=== PATIENT | male | born 1990 | race Caucasian/White ===

== ENCOUNTER 2022-11-16 20:11 | Emergency (ER) | payer BC, OTHER, SELFPAY ==
[2022-11-16 20:12] VITALS: BP 132/91; PULSE 75; RESP 18; TEMP 36.6; O2SAT 98; BMI 26.5
--- NOTE | 2022-11-16 20:23 | ED.VIS.GI ---
HPI HPI - GI History of Present Illness Chief Complaint: Foreign Body Narrative Narrative: 32-year-old male presenting with irritation to the lower part of the esophagus. He states he was eating some mac & cheese and that was takeout and he believes he swallowed a piece of the plastic from the lid of the container. Patient states that he felt a crunch when he was chewing but he thought it was the crust of the macaroni and cheese. He swallowed this and felt something sharp in his throat. Has not had any trouble swallowing or breathing. PFSH PFSH Home Medications No Known/Unobtainable [No Known Home Medications] 03/25/17 [History Last Taken Unknown] Allergy/AdvReac Type Severity Reaction Status Date / Time No Known Allergies Allergy Verified 11/16/22 20:11 Social History Smoking Status: Current every day smoker tobacco type: cigarettes ROS ROS ED Constitutional Constitutional ED: Denies chills or fever(s) ENT ENT ED: Denies rhinorrhea Cardiovascular Cardiovascular: Denies chest pain or palpitations Respiratory/Chest Respiratory/Chest: Denies cough or dyspnea Gastrointestinal Gastrointestinal: Reports other Details: Foreign body sensation of soft ; Denies abdominal pain or constipation Genitourinary Genitourinary ED: Denies dysuria or hematuria Musculoskeletal Musculoskeletal: Denies arthralgias or back pain Integumentary Denies abscess or Abrasions Neurologic Neurologic: Denies headache(s) EXAM Physical Exam Const Vital Signs: 11/16/22 20:12 11/16/22 20:26 Temperature 97.9 F Temperature Source Temporal Pulse Rate 75 Respiratory Rate 18 Respiratory Effort Normal Respiratory Pattern Normal Blood Pressure 132/91 H Blood Pressure Mean 104 Pulse Ox 98 Oxygen Delivery Method Room Air Positive well nourished General Appearance ED: NAD HEENT Reports TM's clear HEENT Narrative: Patient tolerated on secretions. Tympanic Membrane ED: Yes TM's clear Eyes PERRL and EOMs intact bilaterally Neck no lymphadenopathy and supple Neck Narrative: No stridor. Resp normal respiratory effort Cardio regular rate and regular rhythm GI non-tender Neuro CN's II-XII intact bilaterally Sensorium / Orientation: alert Psych mental status grossly normal Skin no wounds MDM MDM MDM Narrative Medical decision making narrative: 32-year-old male presenting with concern that he swallowed a piece of plastic from a lid trauma to go container. He does have some slight irritation but is not having trouble swallowing or breathing. He is tolerating his own secretions. He was able to drink after this and swallowing was nonissue. Discussed with Dr. Reich who felt that it was likely irritation all and he felt the plastic would pass. He did not feel like the patient needed a emergent scope. I did obtain soft tissue neck and KUB which does not identify any foreign bodies. Patient was counseled on return precautions. He was given Dr. Reich for follow-up should he need them. Discharged in stable condition. Impression: 1. Swallowed foreign body 2. Globus hystericus Radiography Diagnostic Testing: Clinical Impression(s) from Imaging Studies Soft Tissue Neck X-Ray 11/16/22 20:30 IMPRESSION: Unremarkable study. Electronically Signed: Philip Hinse MD at 20:59 EDT , KUB X-Ray 11/16/22 21:00 IMPRESSION: Non-obstructive bowel gas pattern. Electronically Signed: Philip Hines MD at 21:42 EDT , Discharge Plan Triage Chief Complaint: Foreign Body ED Provider: Bjorn Rojas Dx/Rx/DC Orders Instructions: ED Swallowed Foreign Body (Adult) Prescriptions: No Action No Known Home Medications Primary Care Provider: Rush Lezama Referrals: Rush Lezama MD [Primary Care Provider] - Rodney Reich DO [Med Staff - Active Staff] - 3-5 Days Disposition Disposition: Home, Self Care
--- NOTE | 2022-11-16 20:30 | RAD_ITS ---
INDICATION: Foreign body EXAMINATION/TECHNIQUE: X-RAY - XR Neck Soft Tissue COMPARISON: None. FINDINGS: SOFT TISSUES: Unremarkable. No radiopaque foreign body. EPIGLOTTIS: No pathologic thickening or enlargement. PROXIMAL AIRWAY: Grossly patent. RAD/Neck for Soft Tissue IMPRESSION: Unremarkable study. Electronically Signed: Philip Hines MD at 20:59 EDT ,
--- NOTE | 2022-11-16 21:00 | RAD_ITS ---
INDICATION: foreign body EXAMINATION/TECHNIQUE: X-RAY - XR Abdomen 1 View COMPARISON: None FINDINGS: BOWEL GAS PATTERN: Non-obstructive. No bowel or stomach distention. FREE AIR: Not assessed on a single supine view. ORGANOMEGALY: Not seen. CALCIFICATIONS: No abnormal calcifications observed. BONES AND SOFT TISSUES: No acute pathology. No radiodense foreign body. RAD/Abdomen Single View (Portable) IMPRESSION: Non-obstructive bowel gas pattern. Electronically Signed: Philip Hines MD at 21:42 EDT ,
== END 2022-11-16 21:51 | disposition home or self-care (01) ==
PROVIDERS: Emergency Provider Student in an Organized Health Care Education/Training Program; PCP Family Medicine; Visit Provider Student in an Organized Health Care Education/Training Program
DX: T17.298A Other foreign object in pharynx causing other injury, initial encounter (principal); F17.210 Nicotine dependence, cigarettes, uncomplicated; F45.8 Other somatoform disorders
CPT/HCPCS: 70360; 74018; 99282

== ENCOUNTER 2023-11-03 15:25 | Outpatient (CLI) | payer BC, OTHER, SELFPAY | END 2023-11-03 23:59 | disposition home or self-care (01) | PROVIDERS: PCP Family Medicine; Referring Provider Obstetrics & Gynecology; Visit Provider Obstetrics & Gynecology | DX: Z01.83 Encounter for blood typing (principal) | CPT/HCPCS: 36415; 86850; 86900; 86901 ==